=== PATIENT | male | born 1970 | race Caucasian/White ===

== ENCOUNTER 2024-06-27 14:44 | Emergency (ER) | payer OTHER, SELFPAY ==
[2024-06-27] VITALS (9 sets, daily range): BP systolic 112–134; BP diastolic 68–91; PULSE 62–106; RESP 16; TEMP 36.1–36.8; O2SAT 93–98; BMI 25.5
--- OUTSIDE RECORDS SUMMARY | 2024-06-27 14:46 | XMS_ITS | Clinical Summary ---
Author Organization [facility] Address [address] [place] [id number] Care Team Providers Care Highway Painter Name Role Phone Nandini Tanner DO Primary Care Provider [phone] Allergies Active Allergy Reactions Criticality Noted Date Comments Oxycodone-Acetaminop hen Other - Describe In Comment Field 05/09/2011 Paranoid Racing mind Medications omega-3 fatty acids-vitamin E (FISH OIL) 1,000 mg capIndications:Mix ed hyperlipidemia Take 2 capsules by mouth once daily. 0 06/26/19 14 Active cetirizine (ZyrTEC) 10 mg tabletIndications: Non-seasonal allergic rhinitis, unspecified trigger Take 1 Tablet (10 mg) by mouth once daily. 90 Tablet 3 07/21/19 22 Active cholecalciferol (Vitamin D-3) 2,000 unit capsuleIndications :Vitamin D deficiency Take 1 Capsule (2,000 units) by mouth once daily. 0 07/21/19 22 Active fluticasone (50 mcg per actuation) nasal solution (FLONASE)Indicatio ns:Non-seasonal allergic rhinitis, unspecified trigger Inhale 1 [place] to both nostrils 2 times daily. 48 g 3 07/21/19 22 Active rosuvastatin (CRESTOR) 10 mg tabletIndications: Elevated coronary artery calcium score Take 1 Tablet (10 mg) by mouth at bedtime. 90 Tablet 3 02/28/19 25 Active tamsulosin 0.4 mg capsuleIndications :BPH with urinary obstruction Take 1 Capsule (0.4 mg) by mouth once daily after a meal. 90 Capsule 3 02/28/19 25 Active polyethylene glycol-electrolyte (GOLYTELY) 236-22.74-6.74 -5.86 gram suspensionIndicati ons:Encounter for screening colonoscopy Drink 2 liters (half the bottle) the day before colonoscopy and 2 liters (remaining prep) 6 hours prior to colonoscopy appointment. 4000 mL 03/05/19 25 Active sildenafil citrate (VIAGRA) 25 mg tabletIndications: Erectile dysfunction of organic origin Take 1 Tablet (25 mg) by mouth once daily if needed for Erectile Dysfunction. Take 30 minutes to 4 hours before sexual activity. Max 100mg/24hr. 30 Tablet 11 03/06/19 25 Active Active Problems Problem Noted Date Diagnosed Date Adenomatous colon polyp 01/01/2019 Overview (03/24/2024): Colonoscopy 12/2018 polyp, repeat in 5 years Colonoscopy 02/2024 normal, repeat in 7-10 years Obstructive sleep apnea 09/22/2016 Spinal stenosis in cervical region 06/25/2013 Non-seasonal allergic rhinitis 06/25/2013 Vitamin D deficiency 05/10/2011 Atrial fibrillation 05/09/2011 Overview (06/25/2013): Recurrent S/p PVI ablation 06/28/11 S/p 2nd ablation 10/2012 Mixed hyperlipidemia 04/06/2010 Atrial flutter 04/01/2010 Overview (06/25/2013): S/p cardioversion S/p PVI ablation 06/28/11 S/p 2nd ablation 10/2012 Encounters Date Type Department Care Team Description 06/27/2024 Nurse Triage [facility] [address] [place] [address] Nandini Tanner DO Irregular Heart Beat from Last 3 Months Immunizations Immunization Administration Dates Next Due COVID-19 vaccine ([employer]-Bio NTech 30mcg/0.3mL) 12YO+ [facility] TERRIE JONES 11/30/2020 COVID-19 vaccine ([employer] NT[employer] 30mcg/0.3mL) TERRIE JONES 04/26/2020,04/05/2020 DTP 04/15/1969,1968,1968 Influenza, CCIIV3 (Age >=6 M O) (Egg Free) 12/20/2023 Influenza, IIV3 (Age >=3 years) 12/03/19 13,02/29/2012,01/11/2008,2006,01/13/2006 Influenza, IIV4 12/08/2021,,12/03/2018,2017 Influenza, IIV4 (=>6mos) MDV 12/07/2019 Influenza,CCIIV4 PRESERV FREE 12/07/2022 Measles 06/24/1969 Oral Polio Vaccine 04/15/1969,1968 Pneumococcal Conj 20-valent (Prevnar 20) 02/29/2024 Td (Age >=7 Years) 05/06/2020 Tdap 04/01/2010,08/23/2005 Zoster (Shingrix-RZV, recombinant) 03/05/2019, Family History Medical History Relation Name Comments Cancer-prostate Father Heart Disease Father born 1943 has stent Hypertension Father Good Health Mother born 1947 No Known Problems Sister Relation Name Status Comments Father Mother Sister Social History Tobacco Use Types Packs/Day Years Used Date Smoking Tobacco: Never Passive Smoke Exposure: Never Smokeless Tobacco: Never Tobacco Cessation:Counseling Given: Yes Alcohol Use Standard Drinks/Week Comments Yes 1.7 (1 standard drink = 0.6 oz p ure alcohol) occ PHQ-2 Answer Date Recorded PHQ-2 TOTAL SCORE 0 02/29/2024 Social Connections Answer Date Recorded Do you often feel lonely or isolated from those around you? 0 02/29/2024 Financial Resource Strain Answer Date R ecorded Difficulty of Paying Living Expenses 3 02/29/2024 Difficulty of Paying Living Expenses Not on file 02/29/2024 Food Insecurity Answer Date Recorded Do you worry your food will run out before you are able to buy more? 1 02/29/2024 Transportation Needs Answer Date Record ed Does lack of transportation keep you from medica l appointments? 1 02/29/2024 Does lack of transportation keep you from work, meetings or getting things that you need? 1 02/29/2024 Housing Stability Answer Date Recorded What is your housing situation today? 1 02/29/2024 Utilities Answer Date Recorded Do you have trouble paying f or utilities (for example, heat, electricity, water, phone)? 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 Not on file Not on file Not on steven e Obstetrics History Last Filed Vital Signs Vital Sign Reading Time Taken Comments Blood Pressure 128/82 02/29/2024 2:42 PM RECORDS MANAGEMENT DIRECTOR Pulse 76 02/29/2024 2:42 PM RECORDS MANAGEMENT DIRECTOR Temperature 36.4 C (97.5 F) 05/31/2018 7:29 AM CDT Respiratory Rate - - Oxygen Saturation 98% 02/29/2024 2:42 PM RECORDS MANAGEMENT DIRECTOR Inhaled Oxygen Concentration - - Weight 100.2 kg (221 lb) 02/29/2024 2:42 PM RECORDS MANAGEMENT DIRECTOR Height 193 cm (6' 4) 02/29/2024 2:42 PM RECORDS MANAGEMENT DIRECTOR Body Mass Index 26.9 02/29/2024 2:42 PM RECORDS MANAGEMENT DIRECTOR Plan of Treatment Health Maintenance Due Date Last Done Comments BMI (ht and wt on same day) for age 18+ 02/28/2025 02/29/2024, 12/29/2022, 07/20/2021, Additional history exists Depression screening for age 12+ 02/28/2025 02/29/2024, 05/25/2023, 07/20/2021, Additional history exists Lipids for age 45-75 02/28/2029 02/29/2024, 08/24/2023, 12/29/2022, Additional history exists Tetanus booster 05/06/2030 05/06/2020, 02/0 05/2010, 08/23/2005 Colonoscopy through age 75 03/26/203103/26 (Completed outside of [facility]), 12/30/2018, 12/30/2018, Additional history exists Tdap Completed 04/01/2010, 08/23/2005 Zoster (shingles) series for age 50+ Completed 03/05/2019, 12/14/2018 COVID-19 vaccine series Completed 12/20/19, 12/07/2022, 12/08/2021, Additional history exists Influenza Vaccine Completed 12/20/2023, , 12/08/2021, Additional history exists HIV for age 15-65 Completed 02/29/2024 Hepatitis C screening for ag e 18-79 Completed 02/29/2024 Pneumococcal series for age 50+ Completed Procedures Procedure Name Priority Date/Time Associated Diagnosis Comments ANTI HIV 1/2 Routine 02/29/2024 3:41 PM RECORDS MANAGEMENT DIRECTOR Screening for HIV (human immunodeficiency virus) ANTI HCV Routine 02/29/2024 3:41 PM RECORDS MANAGEMENT DIRECTOR Need for hepatitis C screening test LIPID PANEL W REFLEX MEASURED LDL Routine 02/29/2024 3:41 PM RECORDS MANAGEMENT DIRECTOR Mixed hyperlipidemia COLONOSCOPY SCREENING Routine 12/30/2018 12:00 AM RECORDS MANAGEMENT DIRECTOR Screening for colon cancer from Last 3 Months or Most Recently Relevant to Health Maintenance Results * (ABNORMAL) LIPID PANEL W REFLEX MEASURED LDL (02/29/2024 3:41 PM RECORDS MANAGEMENT DIRECTOR) CHOLESTEROL, TOTAL 169 <200 mg/dL [facility] HDL CHOLESTEROL 50 > OR = 40 mg/dL [facility] TRIGLYCERIDES 296(H) <150 mg/dL [facility] Comment: If a non-fasting specimen was collected, consider repeat triglyceride testing on a fasting specimen if clinically indicated. Cori et al. J. of Clin. Lipidol. 2015;9:129-169. LDL-CHOLESTEROL 83 mg/dL (calc) [facility] Comment: Reference range: <100 Desirable range <100 mg/dL for primary prevention; <70 mg/dL for patients with CHD or diabetic patients with > or = 2 CHD risk factors. LDL-C is now calculated using the Gabriel-Migue calculation, which is a validated novel method providing better accuracy than the Friedewald equation in the estimation of LDL-C. Gabriel SS et al. SEVEN. 2013;310(19): 3562-3588 (http://education.Kiddy/faq/WUN696) CHOL/HDLC RATIO 3.4 <5.0 (calc) [facility] Eric NON HDL CHOLESTEROL 119 <130 mg/dL (calc) [facility] Comment: For patients with diabetes plus 1 major ASCVD risk factor, treating to a non-HDL-C goal of <100 mg/dL (LDL-C of <70 mg/dL) is considered a therapeutic option. Blood BLOOD SPECIMEN / Unknown 02/29/2024 3:41 PM RECORDS MANAGEMENT DIRECTOR 02/29/2024 3:41 PM RECORDS MANAGEMENT DIRECTOR [facility] Easy Bill Onlinera DO CHEMISTRY Final Result Performing Organization Address [facility] Co de Phone Number Video Furnace [facility] [address] [place] [address], [place] [phone] [facility] [address] [place] [address] * ANTI HCV (02/29/2024 3:41 PM RECORDS MANAGEMENT DIRECTOR) Pathologist [facility] HEPATITIS C ANTIBODY NON-REACTI VE NON-REACT SARAH IQMS [facility] D[facility]loe Comment: HCV antibody was non-reactive. There is no laboratory evidence of HCV infection. In most cases, no further action is required. However, if recent HCV exposure is suspected, a test for HCV RNA (test code 06281) is suggested. For additional information please refer to http://education.Sikernes Risk Management/faq/ZOZ10f7 (This link is being provided for informational/ educational purposes only.) Blood BLOOD SPECIMEN / Unknown 02/29/2024 3:41 PM RECORDS MANAGEMENT DIRECTOR 02/29/2024 3:41 PM RECORDS MANAGEMENT DIRECTOR Connect[employer] DO SEND OUTS Final Result Performing Organization Address [facility]/ZIP Co de Phone Number Video Furnace [facility] [address] [place] [address], [place] [phone] [facility] [address] [place] [address] * ANTI HIV 1/2 [49240.0] (02/29/2024 3:41 PM RECORDS MANAGEMENT DIRECTOR) HIV AG/AB, 4TH GEN NON-REACT SARAH NON-REACT SARAH [facility] Comment: HIV-1 antigen and HIV-1/HIV-2 antibodies were not detected. There is no laboratory evidence of HIV infection. PLEASE NOTE: This information has been disclosed to you from records whose confidentiality may be protected by state law. If your state requires such protection, then the state law prohibits you from making any further disclosure of the information without the specific written consent of the person to whom it pertains, or as otherwise permitted by law. A general authorization for the release of medical or other information is NOT sufficient for this purpose. For additional information please refer to http://education.Sik[employer]es Risk Management/faq/KJJ945 (This link is being provided for informational/ educational purposes only.) The performance of this assay has not been clinically validated in patients less than 2 years old. Blood BLOOD SPECIMEN / Unknown 02/29/2024 3:41 PM RECORDS MANAGEMENT DIRECTOR 02/29/2024 3:41 PM RECORDS MANAGEMENT DIRECTOR Nandini Tanner DO SEND OUTS Final Result [employer] [place] [id number] [place] [address], [address] [address] * COLONOSCOPY SCREENING (12/30/2018 12:00 AM RECORDS MANAGEMENT DIRECTOR) J Luis Trinidad MD GI PROCEDURE ORD Final R esult from Last 3 Months or Most Recently Relevant to Health Maintenance Insurance [facility] [place] [id number] Relationship Specialty Start Date End Date Nandini Tanner DO [address] [place] [address] PCP - General Family Practice 02/29/24
--- OUTSIDE RECORDS SUMMARY | 2024-06-27 14:46 | XMS_ITS | Clinical Summary ---
Author Organization [facility] Address [address], [place] [address] Care Team Providers Care Newspaper Delivery Driver Name Role Phone Unavailable Primary Care Provider Unavailabl e Source Comments You are receiving this document as you are listed as the primary care provider,follow-up provider, or the patient has been referred to you for consultation.This is in compliance with the Medicare andMedicaid EHR Incentive Program,which states Providers who transition their patient to another setting of careor provider of care or refers their patient to another provider of care shouldprovide summary care record for each transition of care or referral. [facility] Immunizations Immunization Administration Dates Next Due Influenza (Flucelvax), Preserv Free QIV 12/08/19 23 Influenza IIV4 (Quadrivalent) 0.5mL (61696) 11/26 Influenza ccIIV3 6 months+ (Flucelvax) 4 Pfizer Bivalent 12+ 12/08/2021 Pfizer COVID-19 12+ 12/20/2023,12/07/2022 Pfizer Monovalent 12+ Purple Top 11/30/2020,03/0 02/2020,04/05/2020 Social History Tobacco Use Types Packs/Day Years Used Date Smoking Tobacco: Never Assessed Sex and Gender Information Value Date Recorded Sex Assigned at Not on file Legal Sex Male 8:46 PM CLIENT CONSULTANT Gender Identity Not on file Sexual Orientation Not on file Plan of Treatment Health Maintenance Due Date Last Done Comments Colon Cancer Screening Plan Due 1968 Hep C Screening (Preventive Services) 1968 PSA Screening Discussion 1968 IPV (Polio) Vaccine (3 of 3 - 4-dose series) 1972 04/15/1969, 1968 HIV Screening (Preventive Services) 1984 Adult Preventive Visit 1986 HepB Vaccine (1) 06/11/1987 Cholesterol 06/11/2003 Pneumococcal Vaccine 50+ Yrs (1 of 1 - PCV) 2018 DTaP/Tdap/Td Vaccine (6 - Tdap) 04/01/2020 04/01/2010, 08/23/2005, 04/15/1969, Additional history exists Zoster/Shingles Vaccine Completed 03/05/2019, 12/14 COVID-19 Vaccine Completed 12/20/2023, 01/2023, 12/08/2021, Additional history exists Influenza Vaccine Completed 12/20/2023, , 12/08/2021, Additional history exists HepA Vaccine Aged Out No longer eligi ble based on patient's age to complete this topic Hib Vaccine Aged Out No longer eligi ble based on patient's age to complete this topic MCV4 Vaccine Aged Out No longer eligi ble based on patient's age to complete this topic Meningococcal B Vaccine Aged Out No l onger eligible based on patient's age to complete this topic Insurance SELF INSURED
--- NOTE | 2024-06-27 15:10 | ED_ITS ---
HPI - General Adult General Chief complaint: Arrhythmia/Palpitations Stated complaint: Irregular Heartbeat Time Seen by Provider: 06/27/24 14:58 Source: patient Mode of arrival: ambulatory Limitations: no limitations History of Present Illness HPI narrative: 54-year-old male presents today with what he believes to be atrial fibrillation. Patient states that he was at home when all the sudden he felt his pulse start to ?jump around my chest. Patient states that he has had atrial fibrillation in the past, had an ablation about 12 years ago and a cardioversion shortly before that. He has been symptom-free for the last 12 years. He is not anticoagulated. He denies chest pain or shortness of breath. He states that he felt this funny pulse approximately 40 5 minutes ago. He states that in the last 12 years he has felt this before but only lasts a few minutes. It has never lasted this long. He denies any recent illness. Related Data Home Medications ?Medication ?Instructions ?Recorded ?Confirmed rosuvastatin 10 mg tablet 10 mg PO QPM 06/27/24 06/27/24 sildenafil 25 mg tablet mg PO DAILY 06/27/24 tamsulosin 0.4 mg capsule PO 06/27/24 Allergies Allergy/AdvReac Type Severity Reaction Status Date / Time acetaminophen (From Percocet) AdvReac Verified 06/27/24 14:56 oxycodone (From Percocet) AdvReac Verified 06/27/24 14:56 Review of Systems Status of ROS: Reports: 10 or more systems reviewed and unremarkable except as noted in History and below Exam Narrative: Exam Narrative: Well-nourished well-developed patient in no acute distress. Alert and oriented. Answers questions appropriately. Mood and affect are appropriate. Thoughts are goal oriented and rational. No tangential or magical thinking noted. Patient speaks in full sentences without needing to catch his breath. HEENT: Normocephalic atraumatic. Pupils are equally round reactive to light. Extraocular muscles are intact. Conjunctivae are moist without any icterus noted. Moist mucous membranes. Cardiovascular: Irregularly irregular. Lungs: Clear to auscultation bilaterally no wheezes rhonchi or rales are appreciated. Patient takes deep breaths without any discomfort. Abdomen: Soft and nontender nondistended with normal bowel sounds. Extremities: Bilateral lower extremities are without edema. Skin: Well perfused without any obvious rashes. Const: Vital Signs, click to edit/add: Vital Signs - 24 hr 06/27/24 14:51 Temperature 97.0 F L Pulse Rate [Pulse Oximeter] 106 H Respiratory Rate 16 Blood Pressure [Le ft Upper Arm] 134/70 Pulse Oximetry 93 Oxygen Delivery Me thod Room Air Course Course ED Course: EKG, read by me, shows atrial fibrillation with a pulse of 106. IV was established and patient received a L of normal saline and 20 mg of IV Cardizem. Unfortunately he remained in atrial fibrillation, pulse came down into the 70s. Blood pressure came down to about 106 systolic. He remained a symptomatic but could still feel his heart fluttering in his chest. Blood work was unremarkable. I spoke to Dr. Lang, cardiology at [facility]. Discussed with him a plan to cardiovert the patient which she was in agreement with. He recommends outpatient follow-up no medications at this time since he was not significantly tachycardic or symptomatic. He also recommend an outpatient echocardiogram. Risks and benefits of the procedure were discussed with the patient including the risk of going into a life-threatening abnormal rhythm and the potential need for intubation. Patient wished to proceed after consent was signed. Patient had procedural sedation done by Dr. Jade. Etomidate was used. First attempt at cardioversion was done with 150 joules, synchronized cardiovers ion. This was not successful. Second attempt was repeated with 200 joules and this was successful. Patient went into normal sinus rhythm with a pulse of 68 afterwards. He woke up without any difficulty. Repeat EKG shows normal sinus rhythm, normal axes, pulse 68, T-wave inversions in V1 and V2. Patient is not having any chest pain or shortness of breath. Vital Signs Vital signs: Initial Vital Signs Temperature 97.0 F L 06/27/24 14:51 Temperature Source Temporal Artery Scan 06/27/24 14:51 Pulse Rate 106 H 06/27/24 14:51 Respiratory Rate 16 06/27/24 14:51 Blood Pressure 134/70 06/27/24 14:51 Blood Pressure Mean 91 06/27/24 14:51 Blood Pressure Position Supine 06/27/24 14:51 Pulse Oximetry 93 06/27/24 14:51 Oxygen Delivery Method Room Air 06/27/24 14:51 Vital Signs Temperature 97.0 F L 06/27/24 14:51 Pulse Rate 106 H 06/27/24 14:51 Respiratory Rate 16 06/27/24 14:51 Blood Pressure 134/70 06/27/24 14:51 Pulse Oximetry 93 06/27/24 14:51 Oxygen Delivery Method Room Air 06/27/24 14:51 Temperature 97.0 F L 06/27/24 14:51 Pulse Rate 106 H 06/27/24 14:51 Respiratory Rate 16 06/27/24 14:51 Blood Pressure 134/70 06/27/24 14:51 Pulse Oximetry 93 06/27/24 14:51 Oxygen Delivery Method Room Air 06/27/24 14:51 Medications Administered Medications: Discontinued Medications Generic Name Dose Route Start Last Admin Trade Name Freq PRN Reason Stop Dose Admin Diltiazem HCl 20 mg 06/27/24 15:03 06/27/24 15:15 Diltiazem 5 Mg/Ml Inj IVP 06/27/24 15:04 20 mg ONCE ONE Administration Sodium Chloride 1,000 mls @ 1,000 mls/hr 06/27/24 15:15 06/27/24 15:16 0.9 % Sodium Chloride 1000 Ml IV 06/27/24 16:14 1,000 mls/hr .Q1H AUDREY Administration Medical Decision Making MDM Narrative Medical decision making narrative: 54-year-old male with history of atrial fibrillation, presenting with atrial fibrillation. Treatment per above. His [id number] score is 0. Lab Data Lab results reviewed: Yes I reviewed the patient's lab results Labs: Lab Results 06/27/24 Range/Units 15:05 WBC 5.58 (4.50-11.00) K/uL RBC 5.46 (4.30-5.90) m/uL Hgb 15.9 (13.5-17.5) gm/dL Hct 47.1 (37.0-53.0) % MCV 86 (80-100) fL MCH 29 (26-34) pg MCHC 34 (32-36) gm/dL RDW Coeff of Tammy 12.8 (11.5-15.5) % Plt Count 196 (140-440) K/uL Neut % (Auto) 62.3 (42.0-72.0) % Lymph % (Auto) 29.7 (20-44) % Stanley % (Auto) 6.5 (0.0-11.0) % Eos % (Auto) 0.9 (0.0-7.0) % Baso % (Auto) 0.4 (0.0-3.0) % Neut # (Auto) 3.48 (1.7-7.0) K/uL Lymph # (Auto) 1.66 (0.90-2.90) K/uL Stanley # (Auto) 0.40 (0.00-0.90) K/UL Eos # (Auto) 0.05 (0.00-0.50) K/uL Baso # (Auto) 0.02 (0.00-0.30) K/uL Abs Immat Gran (auto) 0.01 (0.00-0.30) K/uL Imm/Tot Granulo (auto) 0.2 % Sodium 142 (135-149) mmol/L Potassium 4.1 (3.6-5.1) mmol/L Chloride 106 (96-114) mmol/L Carbon Dioxide 26 (20-32) mmol/L Anion Gap 10 (7-15) mEq/L BUN 15 (7-30) mg/dL Creatinine 1.1 (0.5-1.5) mg/dL Estimated Creat Clear 94.50 Estimated GFR 79 ml/min Glucose 89 (60-115) mg/dL Calcium 9.0 (8.4-10.6) mg/dL Total Bilirubin 1.5 (0.1-1.5) mg/dL Direct Bilirubin 0.3 (0.0-0.5) mg/dL AST 39 H (12-35) U/L ALT 27 (4-50) U/L Alkaline Phosphatase 48 (40-150) U/L Troponin I < 0.01 (0.01-0.04) ng/mL Total Protein 7.2 (6.0-8.3) g/dL Albumin 4.7 (3.3-5.0) g/dL TSH 1.860 (0.270-4.20) uIU/mL ECG Data Attestation: I personally reviewed and interpreted this ECG as follows: Discharge Plan Discharge Clinical Impression: Atrial fibrillation Patient Disposition: Home, Self-Care Condition: Improved Additional Instructions: You presented in atrial fibrillation to the emergency department today. After 2 attempts at cardioversion we were able to get you back into normal sinus rhythm. You should follow-up with your primary care provider this coming week and schedule an outpatient echocardiogram and follow-up appointment with a senior manufacturing engineer. Return to the emergency department for chest pain, shortness of breath or the same fluttering sensation in your chest. Prescriptions: No Action sildenafil 25 mg tablet PO DAILY tamsulosin 0.4 mg capsule PO rosuvastatin 10 mg tablet 10 mg PO QPM Follow Up/Referrals: J Luis Trinidad MD [Primary Care Provider] - Stand Alone Forms: Instapio Info Instructions
[2024-06-27] MEDS: dilTIAZem 5 MG/ML inj 20 MG IVP (15:15)
[2024-06-27] MEDS: 0.9 % SODIUM CHLORIDE 1000 ml 1,000 ML IV (15:16)
--- OUTSIDE RECORDS SUMMARY | 2024-06-27 15:20 | XMS_ITS | Clinical Summary ---
Author Organization [employer] [facility] [facility] Address [address] [place] [id number] Care Team Providers Care Lead Level Designer Name Role Phone Nandini Tanner DO Primary Care Provider [phone] Allergies Active Allergy Reactions Criticality Noted Date [...] ns:Non-seasonal allergic rhinitis, unspecified trigger Inhale 1 Matthews to both nostrils 2 times daily. 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 Not on file Not on file Not on steven e Obstetrics History Last Filed Vital Signs Vital Sign Reading Time Taken Comments Blood Pressure 128/82 02/29/2024 2:42 PM CLOUD INFRASTRUCTURE ARCHITECT Pulse 76 02/29/2024 2:42 PM CLOUD INFRASTRUCTURE ARCHITECT Temperature 36.4 C (97.5 F) 05/31/2018 7:29 AM CDT Respiratory Rate - - Oxygen Saturation 98% 02/29/2024 2:42 PM CLOUD INFRASTRUCTURE ARCHITECT Inhaled Oxygen Concentration - - Weight 100.2 kg (221 lb) 02/29/2024 2:42 PM CLOUD INFRASTRUCTURE ARCHITECT Height 193 cm (6' 4) 02/29/2024 2:42 PM CLOUD INFRASTRUCTURE ARCHITECT Body Mass Index 26.9 02/29/2024 2:42 PM CLOUD INFRASTRUCTURE ARCHITECT Plan of Treatment Health Maintenance Due Date [...] through age 73 03/26/203103/26 (Completed outside of [facility]), 12/30/2018, 12/30/2018, Additional history exists Tdap Completed [...] ANTI HIV 1/2 Routine 02/29/2024 3:41 PM CLOUD INFRASTRUCTURE ARCHITECT Screening for HIV (human immunodeficiency virus) ANTI HCV Routine 02/29/2024 3:41 PM CLOUD INFRASTRUCTURE ARCHITECT Need for hepatitis C screening test LIPID PANEL W REFLEX MEASURED LDL Routine 02/29/2024 3:41 PM CLOUD INFRASTRUCTURE ARCHITECT Mixed hyperlipidemia COLONOSCOPY SCREENING Routine 12/30/2018 12:00 AM CLOUD INFRASTRUCTURE ARCHITECT Screening for colon cancer from Last 3 Months or Most Recently Relevant to Health Maintenance Results * (ABNORMAL) LIPID PANEL W REFLEX MEASURED LDL (02/29/2024 3:41 PM CLOUD INFRASTRUCTURE ARCHITECT) CHOLESTEROL, TOTAL 169 <200 mg/dL [facility] HDL CHOLESTEROL 50 > OR = 40 mg/dL [facility] TRIGLYCERIDES 296(H) <150 mg/dL [facility] Comment: If a non-fasting specimen was collected, consider repeat triglyceride testing on a fasting specimen if clinically indicated. Cori et al. J. of Clin. Lipidol. 2015;9:129-169. LDL-CHOLESTEROL 83 mg/dL (calc) [facility] Comment: Reference range: <100 Desirable range <100 mg/dL for primary prevention; <70 mg/dL for patients with CHD or diabetic patients with > or = 2 CHD risk factors. LDL-C is now calculated using the Gabriel-Migue calculation, which is a validated novel method providing better accuracy than the Friedewald equation in the estimation of LDL-C. Gabriel SS et al. SEVEN. 2013;310(19): 3265-3448 (http://education.Softdesk/faq/YYZ574) CHOL/HDLC RATIO 3.4 <5.0 (calc) [facility] NON HDL CHOLESTEROL 119 <130 mg/dL (calc) [facility] Comment: For patients with diabetes plus 1 major ASCVD risk factor, treating to a non-HDL-C goal of <100 mg/dL (LDL-C of <70 mg/dL) is considered a therapeutic option. Blood BLOOD SPECIMEN / Unknown 02/29/2024 3:41 PM CLOUD INFRASTRUCTURE ARCHITECT 02/29/2024 3:41 PM CLOUD INFRASTRUCTURE ARCHITECT [facility] [place] taggara DO CHEMISTRY Final Result Performing Organization Address [facility] Co de Phone Number [employer] [facility] [address] [place] [address], [place] [phone] [facility] [address] [place] [address] * ANTI HCV (02/29/2024 3:41 PM CLOUD INFRASTRUCTURE ARCHITECT) Pathologist [facility] HEPATITIS C ANTIBODY NON-REACTI VE NON-REACT SARAH [employer] [facility] Comment: HCV antibody was non-reactive. There is no laboratory evidence of HCV infection. In most cases, no further action is required. However, if recent HCV exposure is suspected, a test for HCV RNA (test code 79404) is suggested. For additional information please refer to http://education.Zhima Tech/faq/UGA86j4 (This link is being provided for informational/ educational purposes only.) Blood BLOOD SPECIMEN / Unknown 02/29/2024 3:41 PM CLOUD INFRASTRUCTURE ARCHITECT 02/29/2024 3:41 PM CLOUD INFRASTRUCTURE ARCHITECT Waynaut[employer]ra DO SEND OUTS Final Result Performing Organization Address [facility]/ZIP Co de Phone Number [employer] [facility] [address] [place] [address], [place] [phone] [facility] [address] [place] [address] * ANTI HIV 1/2 [65301.0] (02/29/2024 3:41 PM CLOUD INFRASTRUCTURE ARCHITECT) HIV AG/AB, 4TH GEN NON-REACT SARAH NON-REACT SARAH [facility] Comment: HIV-1 antigen and HIV-1/HIV-2 antibodies [...] purpose. For additional information please refer to http://education.Zhima Tech/faq/QAJ863 (This link is being provided for informational/ educational purposes only.) The performance of this assay has not been clinically validated in patients less than 2 years old. Blood BLOOD SPECIMEN / Unknown 02/29/2024 3:41 PM CLOUD INFRASTRUCTURE ARCHITECT 02/29/2024 3:41 PM CLOUD INFRASTRUCTURE ARCHITECT Nandini Tanner DO SEND OUTS Final Result [employer] [address] [place] [address], [facility] [address] * COLONOSCOPY SCREENING (12/30/2018 12:00 AM CLOUD INFRASTRUCTURE ARCHITECT) J Luis Trinidad MD GI PROCEDURE ORD Final R esult from Last 3 Months or Most Recently Relevant to Health Maintenance Insurance [facility] [place] [id number] Care Teams Lead Level Designer Relationship Specialty Start Date End Date Nandini Tanner DO [address] [place] [address] PCP - General Family Practice 02/29/24
--- OUTSIDE RECORDS SUMMARY | 2024-06-27 15:20 | XMS_ITS | Clinical Summary ---
Author Organization [facility] Address [address], [place] [address] Care Team Providers Care Main Entree Cook And Cashier Name Role Phone Unavailable Primary Care Provider [...] for each transition of care or referral. [facility] Immunizations Immunization Administration Dates Next Due Influenza (Flucelvax), Preserv Free QIV 12/08/19 23 Influenza IIV4 (Quadrivalent) 0.5mL (46869) 11/26 Influenza ccIIV3 6 months+ (Flucelvax) 4 Pfizer Bivalent 12+ 12/08/2021 Pfizer COVID-19 12+ 12/20/2023,12/07/2022 Pfizer Monovalent 12+ Purple Top 11/30/2020,03/0 02/2020,04/05/2020 Social History Tobacco Use Types Packs/Day Years Used Date Smoking Tobacco: Never Assessed Sex and Gender Information Value Date Recorded Sex Assigned at Not on file Legal Sex Male 8:46 PM SHIRRER Gender Identity Not on file Sexual Orientation [...]
[2024-06-27 15:51] LABS: Basophils Absolute Auto 0.02 K/uL (0.00-0.30); Basophils Percent Auto 0.4 % (0.0-3.0); Eosinophils Absolute Auto 0.05 K/uL (0.00-0.50); Eosinophils Percent Auto 0.9 % (0.0-7.0); Hematocrit 47.1 % (37.0-53.0); Hemoglobin* 15.9 gm/dL (13.5-17.5); Immature Granulocytes Abs Auto 0.01 K/uL (0.00-0.30); Immature Granulocytes Pct Auto 0.2 %; Lymphocytes Absolute Auto 1.66 K/uL (0.90-2.90); Lymphocytes Percent Auto 29.7 % (20-44); Mean Corpuscular HGB Conc 34 gm/dL (32-36); Mean Corpuscular Hemoglobin 29 pg (26-34); Mean Corpuscular Volume 86 fL (80-100); Monocytes Percent Auto 6.5 % (0.0-11.0); Neutrophils Absolute Auto 3.48 K/uL (1.7-7.0); Neutrophils Percent Auto 62.3 % (42.0-72.0); Platelet Count* 196 K/uL (140-440); RDW Coefficient of Variation % 12.8 % (11.5-15.5); Red Blood Count 5.46 m/uL (4.30-5.90); White Blood Count* 5.58 K/uL (4.50-11.00)
[2024-06-27 15:52] LABS: Albumin* 4.7 g/dL (3.3-5.0); Chloride* 106 mmol/L (96-114); Sodium* 142 mmol/L (135-149)
[2024-06-27 15:53] LABS: Potassium* 4.1 mmol/L (3.6-5.1)
[2024-06-27 15:55] LABS: Alanine Aminotransferase* 27 U/L (4-50); Alkaline Phosphatase* 48 U/L (40-150); Anion Gap 10 mEq/L (7-15); Aspartate Amino Transferase* 39 U/L (12-35); Bilirubin Direct* 0.3 mg/dL (0.0-0.5); Bilirubin Total* 1.5 mg/dL (0.1-1.5); Blood Urea Nitrogen* 15 mg/dL (7-30); Carbon Dioxide* 26 mmol/L (20-32); Creatinine* 1.1 mg/dL (0.5-1.5); Estimated Glomerular Filt Rate 79 ml/min; Slide Review Reflex No; Total Protein* 7.2 g/dL (6.0-8.3)
[2024-06-27 15:56] LABS: Glucose* 89 mg/dL (60-115)
[2024-06-27 16:12] LABS: Troponin I* < 0.01 ng/mL (0.01-0.04)
[2024-06-27] MEDS: ETOMIDATE 2 MG/ML inj 10 MG IVP (17:02)
== END 2024-06-27 17:45 | disposition home or self-care (01) ==
PROVIDERS: Emergency Provider Family Medicine; PCP Family Medicine
DX: I48.91 Unspecified atrial fibrillation (principal)
CPT/HCPCS: 92960; 36415; 80048; 80076; 84443; 84484; 85025; 93005; 94761; 96360; 96361; 96374; 99285; J7030